=== PATIENT | female | born 1935 | race Caucasian/White ===

== ENCOUNTER 2020-09-21 17:29 | Emergency (ER) | payer OTHER, BC ==
[2020-09-21] MEDS ORDERED: MECLIZINE HCL 25 MG TABLET (FP) PO ONE (18:01)
[2020-09-21 18:39] VITALS: BP 133/77; PULSE 67; TEMP 98.7; BMI 25.7
[2020-09-21 19:12] LABS: BASO % 4.1 % (0-2.0); EOS % 1.4 % (0-4.5); HEMATOCRIT 45.5 % (32.4-45.2); HEMOGLOBIN 15.6 GM/dl (10.7-15.3); LYMPH % 33.4 % (8-40); MCH 32.8 pg (25.7-33.7); MCHC 34.4 g/dl (32.0-36.0); MEAN CELL VOLUME 95.4 fl (80-96); MEAN PLT VOLUME 7.5 fl (7.5-11.1); MONO % 9.6 % (3.8-10.2); NEUT % 51.5 % (42.8-82.8); PLATELET COUNT 206 K/MM3 (134-434); RBC 4.76 M/mm3 (3.60-5.2); RDW 13.1 % (11.6-15.6); WHITE BLOOD COUNT 6.8 K/mm3 (4.0-10.8)
[2020-09-21 19:28] LABS: ALBUMIN 4.2 g/dl (3.4-5.0); BILIRUBIN,TOTAL 0.6 mg/dl (0.2-1); CALCIUM 9.1 mg/dl (8.5-10); CREATININE 0.6 mg/dl (0.55-1.3); INR 1.3 (0.82-1.09); POTASSIUM 4.2 mmol/L (3.5-5.1); PROTHROMBIN TIME (PATIENT) 14.3 SEC (10.2-13.0)
[2020-09-21] MEDS ORDERED: CEFTRIAXONE 1,000 MG in DEXTROSE 5%-WATER - 50 ML IVPB ONE (20:49)
[2020-09-21] MEDS ORDERED: cefTRIAXone SODIUM 1 GM VIAL ONE (21:13)
== END 2020-09-21 22:03 | disposition home or self-care (01) ==
LOC: FER 17:29
DX: N39.0 Urinary tract infection, site not specified (principal)
CPT/HCPCS: 36415; 70450-TC; 71046-TC-FY; 80053; 81003; 81015; 82550; 84484; 85025; 85610; 85730; 87086; 87186; 93005; 99285-25

== ENCOUNTER 2021-02-11 18:24 | Emergency (ER) | payer OTHER, BC ==
[2021-02-11 18:47] VITALS: BP 120/84; PULSE 81; TEMP 98.3; BMI 25.8
[2021-02-11 19:10] LABS: BASO % 2.6 % (0-2.0); EOS % 1.9 % (0-4.5); HEMOGLOBIN 14.9 GM/dl (10.7-15.3); LYMPH % 43.1 % (8-40); MCH 33.1 pg (25.7-33.7); MCHC 34.7 g/dl (32.0-36.0); MEAN CELL VOLUME 95.5 fl (80-96); MEAN PLT VOLUME 7.3 fl (7.5-11.1); MONO % 9.4 % (3.8-10.2); PLATELET COUNT 232 K/MM3 (134-434); RBC 4.51 M/mm3 (3.60-5.2); RDW 13.2 % (11.6-15.6)
[2021-02-11 20:13] LABS: CALCIUM 9.1 mg/dL (8.5-10.1)
[2021-02-11 20:14] LABS: ALBUMIN 3.7 g/dl (3.4-5.0)
[2021-02-11 20:16] LABS: CREATININE 0.7 mg/dL (0.55-1.3)
[2021-02-11 20:18] LABS: BILIRUBIN,TOTAL 0.4 mg/dL (0.2-1)
[2021-02-11 20:19] LABS: TOT PROT 7.1 g/dl (6.4-8.2)
== END 2021-02-11 21:00 | disposition home or self-care (01) ==
LOC: FER 18:24
DX: N39.0 Urinary tract infection, site not specified (principal); R41.0 Disorientation, unspecified
CPT/HCPCS: 36415; 71045-TC-FY; 80053; 81003; 85025; 87040; 87086; 87186; 93005; 99284-25; C9803; U0003; U0005